=== PATIENT | female | born 2000 | race Caucasian/White ===

== ENCOUNTER → 2025-05-14 | Emergency (ER) | payer BC ==
[~2025-05-14] VITALS: Ht 165.1 cm; Wt 58.5 kg
[~2025-05-14] MED LIST: KETO10TA2 PO
[2025-05-14 22:38] VITALS: BP 107/67; O2SAT 97
[2025-05-14 23:38] LABS: PLATELET COUNT (AUTO) 191 K/uL (179-408); RED BLOOD CELL COUNT(AUTO) 4.01 MIL/uL (3.63-4.92); RED CELL DISTRIBUTION WIDTH 12.5 % (12.3-17.7); WHITE BLOOD COUNT (AUTO) 5.3 K/uL (3.8-11.8)
[2025-05-14 23:45] LABS: CREATININE 0.7 mg/dL (0.6-1.3); SODIUM SERUM 141.0 mmol/L (136-145); UREA NITROGEN, BLOOD 9.0 mg/dL (7-18)
[2025-05-14 23:48] LABS: *BILIRUBIN,URIN NEGATIVE (NEGATIVE); *BLOOD, URINE NEGATIVE (NEGATIVE); *CLARITY,URINE CLEAR (CLEAR); *COLOR,URINE YELLOW (YELLOW); *KETONES,URINE TRACE (NEGATIVE); *PROTEIN,URINE NEGATIVE (NEGATIVE); *UROBILINOGEN,URINE 0.2 E.U./dl (NORMAL); LEUKOCYTE ESTERASE ,URINE NEGATIVE (NEGATIVE); NITRITE, URINE NEGATIVE (NEGATIVE); UGLUCOSE NEGATIVE (NEGATIVE)
[2025-05-14 23:51] LABS: ASPARTATE AMINOTRANSFERASE 6.0 U/L (15-37); TOTAL PROTEIN, SERUM 6.9 g/dL (6.4-8.2)
[2025-05-14 23:56] LABS: *URINE HCG, QUAL NEGATIVE (NEGATIVE)
[2025-05-15 00:06] LABS: SQUAMOUS EPITHELIAL CELL,UR FEW /HPF (NONE SEEN)
== END | disposition home or self-care (01) ==
LOC: ER 22:42
DX: R10.31 Right lower quadrant pain (principal); R10.2 Pelvic and perineal pain; F39 Unspecified mood [affective] disorder; F32.A Depression, unspecified; Z88.1 Allergy status to other antibiotic agents; Z60.2 Problems related to living alone
CPT/HCPCS: 36415; 83690; 84703; 85025; A4606; A4663